=== PATIENT | female | born 1975 | race American Indian/Alaskan Native ===

== ENCOUNTER 2016-07-10 09:15 | Outpatient (CLI) | payer BC ==
--- NOTE | 2016-07-10 11:06 | Ultrasound Report ---
Left mammogram and left breast ultrasound: Additional spot compression imaging of the left breast is performed for asymmetries identified on mammogram one year ago. The patient does have a history of reduction surgery. Additional spot compression imaging doesn't demonstrate an area of architectural distortion in the inferomedial breast there is no focal nodule currently noted. The suspected nodule inferiorly on the right is no longer identified with spot compression. Left breast ultrasound performed in the inferomedial left breast fails to identify any architectural distortion or focal mass. Impression: Benign findings. Left breast scar from surgery. Recommendation: Annual mammogram followup. BI-RADS CATEGORY: 2 = Benign ACR BI-RADS MAMMOGRAPHIC CODES: 0 = Needs additional imaging evaluation; 1 = Negative; 2 = Benign; 3 = Probably benign; 4 = Suspicious; 5 = Malignant; 6 = Known biopsy-proven malignancy COMMENT: 1. Dense breast tissue, i.e., adenosis, fibrocystic changes, etc., may obscure an underlying neoplasm. 2. Approximately 10% of cancers are not detected with mammography. 3. A negative mammography report should not delay biopsy if a clinically suspicious mass is present.
== END 2016-07-10 09:16 | disposition home or self-care (01) ==
LOC: SPVWC 09:15
PROVIDERS: ATTEND Obstetrics & Gynecology
DX: R92.8 Other abnormal and inconclusive findings on diagnostic imaging of breast (principal)
CPT/HCPCS: 76642; G0204; 77066

== ENCOUNTER 2017-02-21 08:26 | Outpatient (CLI) | payer BC ==
--- NOTE | 2017-02-21 10:07 | Ultrasound Report ---
ULTRASOUND LEFT AXILLA: 02/21/17 CLINICAL: Left axillary swelling FINDINGS: Ultrasound of the left axilla demonstrated no mass or lymph nodes. No cyst or fluid collection. IMPRESSION: Normal study.
== END 2017-02-21 08:27 | disposition home or self-care (01) ==
LOC: SPVWC 08:26
PROVIDERS: ATTEND Internal Medicine
DX: E01.0 Iodine-deficiency related diffuse (endemic) goiter (principal)

== ENCOUNTER 2017-02-21 09:05 | Outpatient (CLI) | payer BC ==
--- NOTE | 2017-02-21 09:42 | XRay Report ---
RIGHT RIBS, 3 VIEWS: History: pain. Routine views of the rib cage demonstrate normal mineralization with no significant contour abnormalities, fractures or destructive lesions. PA view of the chest demonstrates no underlying cardiopulmonary abnormalities, fluid or pneumothorax. IMPRESSION: Unremarkable right rib series.
== END 2017-02-21 09:06 | disposition home or self-care (01) ==
LOC: SPVIMAG 09:05
PROVIDERS: ATTEND Internal Medicine
DX: M89.9 Disorder of bone, unspecified (principal)

== ENCOUNTER 2017-03-19 09:12 | Day surgery (SDC) | payer BC ==
[2017-03-19 09:38] VITALS: BP 109/67
--- NOTE | 2017-03-19 10:51 | Short Stay Summary ---
Short Stay Documentation Date of service: 03/19/17 - History Principal diagnosis: right thyroid nodule H&P: obtained from office Social history: no significant social history - Allergies and Medications Current Medications: Allergies No Known Allergies Allergy (Verified 03/19/17 09:34) - Physical exam General appearance: no acute distress HEENT: Atraumatic, Mucous membr. moist/pink - Brief post op/procedure progress note Date of procedure: 03/19/17 Pre-op diagnosis: right thyroid nodule/mass Post-op diagnosis: same Procedure: US thyroid biopsy Anesthesia: local Findings: 4.2cm right thyroid mass Surgeon: JASEN MATHIS Estimated blood loss: none Pathology: list (FNA,rotex biopsy) Specimen disposition: to lab Condition: stable - Disposition Condition at discharge: Good Disposition: [id number] TO HOME OR SELFCARE Short Stay Discharge Plan Follow up with: IVAN MOREJON MD [Primary Care Provider] - 7 Days
--- NOTE | 2017-03-19 11:16 | Ultrasound Report ---
ULTRASOUND BIOPSY THYROID History: Right thyroid mass Description of procedure: Informed consent was obtained. Sterile technique was utilized. 1% lidocaine for skin anesthesia. Using ultrasound guidance, fine needle laceration and Rotex biopsy was performed on a 4.2 x 2.6 x 2.8 cm slightly heterogeneous mass in the mid right thyroid lobe. The samples were deemed adequate by the pathologist on site. No complications. Impression: Successful ultrasound-guided biopsy of the right thyroid lobe mass as described.
== END 2017-03-19 11:15 | disposition home or self-care (01) ==
LOC: CATHLABREC 09:12
PROVIDERS: ATTEND Internal Medicine
DX: E04.1 Nontoxic single thyroid nodule (principal)
CPT/HCPCS: 60100; 76942; 88112; 88172; 88173; 88305